=== PATIENT | female | born 1950 | race Caucasian/White ===

== ENCOUNTER → 2017-03-22 | Outpatient (CLI) | payer OTHER ==
[~2017-03-22] MED LIST: FLEXERIL PO; METHOTREXATE 22.5 M1; NORCO 5-325 TA1 EACH PO; PREDNISONE 5 MG5 M1; SYNTHROID75 MCG
== END ==
LOC: MRI 05:45
DX: M47.896 Other spondylosis, lumbar region (principal); M43.16 Spondylolisthesis, lumbar region; M43.27 Fusion of spine, lumbosacral region

== ENCOUNTER → 2017-05-03 | Outpatient (CLI) | payer OTHER ==
[~2017-05-03] VITALS: Ht 165.1 cm; Wt 81.4 kg
[~2017-05-03] MED LIST changes: +BIOTIN5000 MCG PO; +CHLORTHALIDONE25 MG PO; +FOLIC ACID1 MG PO; +GABAPENTIN 100100 MG PO; +LEVOTHYROXIN0.088 MG PO; +NAPROSYN500 MG PO; +NORVASC5 MG PO; +OMEGA-31000 M1 PO; +PRESERVISION A1 EACH PO; +VITAMIN B12-FO1 EAC1 PO; +VITAMIN D3400 UNIT PO; +VITAMINC500 PO; +ZANTAC 150MG T150 MG PO
--- NOTE | ~2017-05-03 | HPC ---
[facility] [address] [place] [address] PAIN MANAGEMENT CONSULTATION Name: ROSANGELA RAO Room #: REG [facility]#: [id number] Admission: 05/03/17 Attend Phys: Carmelo Montgomery DO Discharge: Date of : 54 Report #: [id number] THIS REPORT FOR: //name// CC: Carmelo Penn MD DATE OF SERVICE: 05/03/2017 REFERRING PHYSICIAN: Chaitanya Penn M.D. CHIEF COMPLAINT: Low back pain, left hip pain. HISTORY OF PRESENT ILLNESS: As you know, the patient is a 67-year-old female with longstanding history of low back pain and left hip pain. The patient indicates pain began at an unknown time, has been present for some time, but the patient is unable to determine how long the symptoms have been present. She has been complaining of this for some time with Dr. Penn. She indicates pain is periodic and intermittent, describes the pain as burning, shooting, sharp and stabbing, places current pain score 5/10, daily average at 10/10, worst pain has been is 10/10. The patient states pain is exacerbated with nothing specific, improves with lying down. She has been referred to our service for evaluation for low back pain with suspected radiculopathy. PAST MEDICAL HISTORY: 1. Breast cancer, left, status post mastectomy. 2. Chronic cervical radiculopathy. 3. Costochondritis. 4. Fibromyalgia. 5. Hypertension. 6. Chronic low back pain. 7. Migraine headaches. 8. Onychomycosis. 9. Osteoarthritis. 10. Urge incontinence. PAST SURGICAL HISTORY: 1. Abdominal surgery. 2. Appendectomy. 3. Breast biopsy. 4. Mastectomy. 5. Cholecystectomy. 6. Hysterectomy. 7. Uterine surgery. SOCIAL HISTORY: The patient denies tobacco, alcohol, IV or illicit drug use. 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 She is working, not receiving workmen's compensation. She is not in litigation in regards to pain. She is unaccompanied today. REVIEW OF SYSTEMS: Positive for weight gain, night sweats, fatigue, weakness, frequent and recurrent headaches, eye disease, wearing corrective eyewear, shortness of breath, cough, changes in bowel movements, constipation, frequent urination, nocturia, change of force or stream urination, changes in hair and nail texture, varicose veins, frequent and recurrent headaches, lightheadedness and dizziness, glandular and hormonal problems, thyroid disease, excessive thirst, heat and cold intolerance, bleeding and bruising tendencies. All other review of systems negative per 12-point review of systems other than those listed in history of present illness. Pain impact score 29/70 indicating moderate interference of daily activities secondary to pain. ALLERGIES: AVELOX, BENADRYL, IBUPROFEN, LOSARTAN, PENICILLIN, SULFA DRUGS. CURRENT MEDICATIONS: Deane-3 fish oil, ranitidine, folic acid, chlorthalidone, gabapentin, naproxen, prednisone, levothyroxine, methotrexate, hydrocodone, amlodipine, vitamin C, Biotin, vitamin D3, vitamin B12. IMAGING: MRI of lumbar spine obtained on 03/22/2017 shows multilevel mild degenerative changes, partial sacralization of L5. Moderate degenerative hypertrophic changes at L4-L5. There is anterolisthesis of L4 upon L5 4 mm. No significant disk protrusion or central canal stenosis, mild disk bulging. Opioid risk tool, score 5, moderate risk. PHYSICAL EXAMINATION: VITAL SIGNS: Blood pressure 148/81, pulse is 89, respiratory rate 14, unlabored. The patient is 97% on room air, height 5 feet 5 inches tall, weight 179.4 pounds, BMI calculated at 29.9. GENERAL: Well-developed, well-nourished, well-hydrated 67-year-old female appearing her stated age, placing current pain score at approximately 5/10. HEENT: Normocephalic, atraumatic. Pupils equal, round, reactive to light. Extraocular muscles are intact. Sclerae nonicteric without injection. NEUROLOGIC: Cranial nerves 2-12 grossly intact. Speech is fluent. The patient deemed a fair historian. LUNGS: Clear, no wheeze, rhonchi or rales. CARDIOVASCULAR: Regular. No appreciable gallop or rub. ABDOMEN: Soft, mildly obese, normoactive bowel sounds. EXTREMITIES: Show no clubbing, no cyanosis, no edema. MUSCULOSKELETAL: There is some palpatory tenderness over the paraspinal musculature of lower lumbar spine, no spinous process tenderness. Seated [facility] [address] [place] [address] PAIN MANAGEMENT CONSULTATION Name: ROSANGELA RAO Room #: ABEL [facility]#: [id number] Admission: 05/03/17 Attend Phys: Carmelo Montgomery DO Discharge: Date of : 54 Report #: [id number] straight leg raising negative. Supine straight leg raising mildly positive with leftward distribution of symptoms radiating into the buttock area. Ankle clonus negative. Babinski is negative. Muscle bulk and tone equal and symmetrical, intact to light touch from L1 through S2 dermatomes. Deep tendon reflexes equal and symmetrical at patella and Achilles. Gait, slightly antalgic favoring the left lower extremity over right. Lumbar provocation testing including extension, rotation, lateral flexion all intensify axial back pain. ASSESSMENT: 1. Lumbosacral spondylosis without radicular symptoms. 2. Myofascial pain syndrome. 3. 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 4. Chronic intractable pain. PLAN: 1. The patient has been referred to our service for what appears to be facet arthropathy of lower lumbar spine. The patient at this time does not show significant radiation of symptoms in the typical distribution for lumbar radiculopathy. The findings on the MRI showed changes mainly at the L5-S1, L4-L5 level, though there is no central canal stenosis, no neural foraminal stenosis of any kind. There are no major compressions of nerve roots anywhere in the lumbar region. The findings do show facet arthropathy, which does correlate to the patient's findings today. We discussed treatment options for facet arthropathy of the lower lumbar spine. The patient and I discussed treatment options, which would include physical therapy, stretching exercises, which is the initial treatment and the gold standard for treatment for arthritic changes in the lumbar region. We discussed medication management with nonsteroidal anti-inflammatories as a treatment option. We did discuss intra-articular facet injections, medial branch nerve blocks from radiofrequency lesioning. Surgical options, I do not feel are appropriate in this patient's case. After reviewing risks and benefits of all proposed treatment options, the patient chose to begin with the most conservative treatment, physical therapy. 2. The patient will be sent for physical therapy twice a week for 6 weeks. I believe physical therapy with core strengthening should improve the patient's symptoms significantly and resolve the patient's overall pain. We will send the patient for the physical therapy and see her back in followup visit once she has completed this treatment. Once she has completed the formalized form of this therapy, she should be continuing this physical therapy at home twice a day for appropriate ____. The initiation of physical therapy is not a choice to be initiated and discontinued, it is to be a lifetime change in activities, which should improve the patient's symptoms for long-term therapy. 3. We wish to thank Dr. Penn for the referral of this patient to our clinic. We are pleased to see her symptoms are mainly related to facet arthropathy and it can be easily resolved with physical therapy, stretching exercises, weight loss, [address] [address] PAIN MANAGEMENT CONSULTATION Name: ROSANGELA RAO Room #: REG [facility] [place]#: [id number] Admission: 05/03/17 Attend Phys: Carmelo Montgomery DO Discharge: Date of : 54 Report #: [id number] certainly interventional treatments could be offered if necessary, that we would like to avoid any type of injection therapy and radiofrequency lesioning if it is not necessary. Again, we wish to thank you for the opportunity to see this patient in consultation. By: [id number] Carmelo Montgomery DO /darya
[2017-05-03 12:35] VITALS: BP 148/81
== END ==
LOC: PAIN 06:34
DX: M47.817 Spondylosis without myelopathy or radiculopathy, lumbosacral region (principal); G89.29 Other chronic pain; Z88.0 Allergy status to penicillin; Z88.8 Allergy status to other drugs, medicaments and biological substances; Z90.49 Acquired absence of other specified parts of digestive tract; Z90.710 Acquired absence of both cervix and uterus; M19.90 Unspecified osteoarthritis, unspecified site; G43.909 Migraine, unspecified, not intractable, without status migrainosus; I10 Essential (primary) hypertension; Z90.12 Acquired absence of left breast and nipple; Z79.899 Other long term (current) drug therapy; Z98.890 Other specified postprocedural states